=== PATIENT | male | born 1990 ===

== ENCOUNTER 2018-03-15 14:01 | Emergency (ER) | payer MEDICAID ==
[2018-03-15 14:02] VITALS: BMI 27.8
[2018-03-15 14:27] VITALS: RESP 18; O2SAT 96
--- NOTE | 2018-03-15 16:08 | C.PDOC ---
History Of Present Illness 27 y/o male presents to ED with c/o left rib pain for 4 days after he was playing basketball and was elbowed in the chest. Patient states pain is worse with movement. Denies chest pain, sob, loc, difficulty breathing or swallowing. Denies other injury. Time Seen by Provider: 03/15/18 14:24 Chief Complaint (Nursing): Rib Injury History Per: Patient History/Exam Limitations: no limitations Onset/Duration Of Symptoms: Days Current Symptoms Are (Timing): Still Present Past Medical History Reviewed: Historical Data, Nursing Documentation, Vital Signs Vital Signs: Last Vital Signs Temp 98.7 F 03/15/18 16:30 Pulse 62 03/15/18 16:30 Resp 18 03/15/18 16:30 BP 113/77 03/15/18 16:30 Pulse Ox 96 03/15/18 16:30 - Medical History PMH: Asthma (NO LONGER ON MEDS.-NEVER HOPITALIZED), Fractures (FX. ANKLE) Surgical History: No Surg Hx Family History: States: No Known Family Hx - Social History Hx Tobacco Use: Yes Hx Alcohol Use: No Hx Substance Use: No - Immunization History Hx Tetanus Toxoid Vaccination: No Hx Influenza Vaccination: No Hx Pneumococcal Vaccination: No Review Of Systems Cardiovascular: Negative for: Chest Pain Respiratory: Negative for: Cough, Shortness of Breath Musculoskeletal: Positive for: Other (rib pain) Skin: Negative for: Rash Physical Exam - Physical Exam Appears: Non-toxic, No Acute Distress Skin: Warm, Dry, No Rash Head: Atraumatic, Normacephalic Eye(s): bilateral: Normal Inspection, EOMI Nose: Normal Oral Mucosa: Moist Neck: Normal, Normal ROM, Supple Chest: Symmetrical, Tenderness (digitally reproducible tenderness to left lateral chest wall, no echhymosis), No Ecchymosis Cardiovascular: Rhythm Regular Respiratory: Normal Breath Sounds, No Rales, No Rhonchi, No Wheezing Gastrointestinal/Abdominal: Soft, No Tenderness, No Guarding, No Rebound Extremity: Normal ROM Neurological/Psych: Oriented x3, Normal Speech ED Course And Treatment O2 Sat by Pulse Oximetry: 96 (RA) Pulse Ox Interpretation: Normal - Other Rad Ribs XR X-Ray: Viewed By Me, Read By Radiologist Interpretation: Accession No. : [id number]. Patient Name / ID : CAMMY Eugene / [id number]. Exam Date : 03/15/2018 15:51:25 ( Approved ). Study Comment : Sex / Age : M / 27Y. Creator : Chalino Delgado MD. Dictator : Chalino Delgado MD. Director Banking : Entry Level Chemist : Chalino Delgado MD. Approver2 : Report Date : 03/15/2018 16:15:44. My Comment : . Date of service: 03/15/2018. PROCEDURE: Radiographs of the Chest and Left Ribs. HISTORY: trauma. COMPARISON: Chest radiograph dated 05/11/2016. TECHNIQUE: Frontal radiograph of the chest and multiple oblique radiographs of the left ribs were obtained. FINDINGS: LEFT RIBS: No fracture or focal lesion visualized. LUNGS: Clear. PLEURA: No pneumothorax or pleural fluid. CARDIOVASCULAR: Normal sized heart. No pulmonary vascular congestion. OTHER FINDINGS: None. IMPRESSION: Unremarkable radiographs of the chest and left ribs. No left rib fracture. Progress Note: Ribs/chest xray, Tramadol administered. On reassessment, patient is resting comfortably, and is in no acute distress. Patient was instructed to follow up with physician/clinic in 1-2 days for further evaluation. Disposition - Disposition Disposition: HOME/ ROUTINE Disposition Time: 16:28 Condition: STABLE Additional Instructions: Rest and ice the area. Follow up with PMD in 1-2 days. Instructions: Costochondritis (DC) Forms: [employer] (French) - Clinical Impression Clinical Impression: Chest wall contusion - PA / SCRATCHER TENDER / Resident Statement MD/DO has reviewed & agrees with the documentation as recorded. - Scribe Statement The provider has reviewed the documentation as recorded by the Scribkwame Delgado All medical record entries made by the Scribe were at my direction and personally dictated by me. I have reviewed the chart and agree that the record accurately reflects my personal performance of the history, physical exam, medical decision making, and the department course for this patient. I have also personally directed, reviewed, and agree with the discharge instructions and disposition.
--- NOTE | 2018-03-15 16:17 | RAD ---
Date of service: 03/15/2018 PROCEDURE: Radiographs of the Chest and Left Ribs. HISTORY: trauma COMPARISON: Chest radiograph dated 05/11/2016. TECHNIQUE: Frontal radiograph of the chest and multiple oblique radiographs of the left ribs were obtained. FINDINGS: LEFT RIBS: No fracture or focal lesion visualized. LUNGS: Clear. PLEURA: No pneumothorax or pleural fluid. CARDIOVASCULAR: Normal sized heart. No pulmonary vascular congestion. OTHER FINDINGS: None. IMPRESSION: Unremarkable radiographs of the chest and left ribs. No left rib fracture.
[2018-03-15 16:38] VITALS: BP 113/77; PULSE 62; TEMP 98.7
== END 2018-03-15 16:31 | disposition home or self-care (01) ==
LOC: C.ER 14:01
DX: S20.212A Contusion of left front wall of thorax, initial encounter (principal); W50.0XXA Accidental hit or strike by another person, initial encounter; Y93.67 Activity, basketball

== ENCOUNTER 2018-08-02 15:06 | Emergency (ER) | payer MEDICAID, OTHER ==
[2018-08-02 15:06] VITALS: BMI 27.8
[2018-08-02 15:43] VITALS: BP 117/69; PULSE 88; RESP 20; TEMP 98.8; O2SAT 97
--- NOTE | 2018-08-02 18:47 | C.PDOC ---
History Of Present Illness Patient is a 28 year old male who presents to the ED for evaluation of chest pain. HPI is limited due to patient eloped prior to evaluation. Eloped at 1655. Time Seen by Provider: 08/02/18 16:33 Chief Complaint (Nursing): Chest Pain History Per: Patient History/Exam Limitations: other (eloped at 1655) Recent travel outside of the [place]: No Additional History Per: Patient Past Medical History Reviewed: Historical Data, Nursing Documentation, Vital Signs Vital Signs: Last Vital Signs Temp 98.8 F 08/02/18 15:39 Pulse 88 08/02/18 15:39 Resp 20 08/02/18 15:39 BP 117/69 08/02/18 15:39 Pulse Ox 97 08/02/18 15:39 - Medical History PMH: Asthma (NO LONGER ON MEDS.-NEVER HOPITALIZED), Fractures (FX. ANKLE) Denies: Chronic Kidney Disease Surgical History: No Surg Hx Family History: States: Unknown Family Hx - Social History Hx Tobacco Use: Yes Hx Alcohol Use: No Hx Substance Use: No - Immunization History Hx Tetanus Toxoid Vaccination: No Hx Influenza Vaccination: No Hx Pneumococcal Vaccination: No Review Of Systems Review Of Systems: ROS cannot be obtained secondary to pt's inabilty to answer questions. (eloped prior to evaluation) Physical Exam - Physical Exam Additional Physical Exam Comments: Patient eloped from the ED prior to my exam ED Course And Treatment ECG: Interpreted By Me, Viewed By Me ECG Rhythm: Sinus Rhythm Interpretation Of ECG: POC 117 Rate From EC O2 Sat by Pulse Oximetry: 97 (ON RA) Pulse Ox Interpretation: Normal Medical Decision Making Medical Decision Making: Plan: EKG Patient eloped at 1655. Disposition Comment: Patient eloped - Disposition Disposition: ELOPEMENT - ER ONLY Forms: [employer] (Pashto) - POA Present On Arrival: None - Clinical Impression Clinical Impression: Eloped from emergency department - Scribe Statement The provider has reviewed the documentation as recorded by the Myron Jay All medical record entries made by the Scribe were at my direction and personally dictated by me. I have reviewed the chart and agree that the record accurately reflects my personal performance of the history, physical exam, medical decision making, and the department course for this patient. I have also personally directed, reviewed, and agree with the discharge instructions and disposition.
--- NOTE | 2018-08-04 05:52 | CARD ---
APPROVED REPORT Date of service: 08/02/2018 EKG Measurement Heart [id number] <Conclusion> Normal sinus rhythm with sinus arrhythmia Normal ECG
== END 2018-08-02 16:59 | disposition left against medical advice (07) ==
LOC: C.ER 15:06
DX: R07.9 Chest pain, unspecified (principal)